=== PATIENT | female | born 1990 | race African-American/Black ===

== ENCOUNTER 2022-06-02 09:14 | Emergency (ER) | payer MEDICAID ==
[~2022-06-02] VITALS: Ht 160 cm; Wt 75.0 kg
[~2022-06-02 09:14] MED LIST: FERR1TAB51 PO; PREN-88 PO
[2022-06-02 09:18] VITALS: BP 131/83
== END 2022-06-02 10:45 | disposition left against medical advice (07) ==
LOC: ER 09:24
DX: M25.561 Pain in right knee (principal)
CPT/HCPCS: 99281

== ENCOUNTER 2022-06-05 03:14 | Emergency (ER) | payer MEDICAID ==
[~2022-06-05] VITALS: Ht 160 cm; Wt 75.0 kg
[2022-06-05] MEDS ORDERED: HYDROCODONE/ACETAMINOPHEN 5/325MG TABLET PO ONE (04:15)
[2022-06-05 04:23] VITALS: BP 128/87
[2022-06-05] MEDS ORDERED: KETOROLAC 60MG/2ML VIAL IM ONE (05:15)
[2022-06-05] MEDS ORDERED: NAPR-681 MT (05:25)
== END 2022-06-05 05:45 | disposition home or self-care (01) ==
LOC: ER 03:14
DX: M25.561 Pain in right knee (principal); S89.81XA Other specified injuries of right lower leg, initial encounter; W01.0XXA Fall on same level from slipping, tripping and stumbling without subsequent striking against object, initial encounter; Y93.89 Activity, other specified; Y92.89 Other specified places as the place of occurrence of the external cause
CPT/HCPCS: 73562; 99283; L1830